=== PATIENT | male | born 1960 | race Caucasian/White ===

== ENCOUNTER → 2017-01-26 | Outpatient (CLI) | payer BC ==
[~2017-01-26] VITALS: Ht 182.9 cm; Wt 86.4 kg
[~2017-01-26] MED LIST: AMLODIPINE5 MG PO; CO Q-1010 M1 PO; DEPO-TESTOS200 MG/M1 IM; DHEA25 M3 PO; FLOMAX0.4 MG PO; LEVOXYL0.125 MG PO; MULTIPLE VITAMI1 CAP PO; MULTIPLE VITAMI1 TA5 PO; NATURE'S BLE1000 MCG PO; OMEGA-3 1000 MG1 CAP PO; OSTEO-BI-FLEX 21 TAB PO; PENTASA250 MG PO; PHARMASSURE ZIN50 MG PO; PREVACID 30MG30 M1 PO; PRINIVIL5 MG PO; PROPRANOLOL10 MG PO; SELENIUM; TIROSINT75 MCG PO; VERAPAMIL; VITAMIN E 400 U4001 PO; VITAMIND3 5000; ZANTAC 300300 MG PO; [UNRECOGNIZED DRUG - CODE] PO; [UNRECOGNIZED DRUG - OTHER]; [UNRECOGNIZED DRUG - OTHER]; [UNRECOGNIZED DRUG - OTHER] PO
[2017-01-26 23:39] VITALS: BP 160/104; PULSE 100; TEMP 97.7
== END ==
LOC: COL.ER 23:34 → EDSTATUS 23:36 → COL.ER 23:39
DX: Z46.6 Encounter for fitting and adjustment of urinary device (principal)
CPT/HCPCS: A4315

== ENCOUNTER 2017-02-22 14:19 | Day surgery (SDC) | payer BC ==
[~2017-02-22] VITALS: Ht 182.9 cm; Wt 89.8 kg
[2017-02-22] VITALS (7 sets, daily range): BP systolic 108–143; BP diastolic 64–90; PULSE 59–86; TEMP 98.4–98.5
[~2017-02-22 14:19] MED LIST changes: -MULTIPLE VITAMI1 CAP PO; -OSTEO-BI-FLEX 21 TAB PO
[2017-02-22] MEDS ORDERED: OSTEO-BI-FLEX 21 TAB PO (16:01)
[2017-02-22] MEDS ORDERED: MULTIPLE VITAMI1 CAP PO (16:01)
[2017-02-23 00:25] VITALS: BP 104/90; PULSE 57; TEMP 98.3
[2017-02-23 05:29] VITALS: BP 124/72; PULSE 58; TEMP 97.7
[2017-02-23 08:57] VITALS: BP 133/68; PULSE 53; TEMP 98.2
== END 2017-02-23 11:40 | disposition home or self-care (01) ==
LOC: SDCO 14:19 → SURG 20:51 → SDCO 02-23 11:40
DX: N42.0 Calculus of prostate (principal); N21.0 Calculus in bladder; N32.0 Bladder-neck obstruction; K21.9 Gastro-esophageal reflux disease without esophagitis; I10 Essential (primary) hypertension; E78.00 Pure hypercholesterolemia, unspecified; E03.9 Hypothyroidism, unspecified; G47.00 Insomnia, unspecified; N41.9 Inflammatory disease of prostate, unspecified; N45.1 Epididymitis; R35.1 Nocturia; R97.20 Elevated prostate specific antigen [PSA]; N39.0 Urinary tract infection, site not specified; N40.1 Benign prostatic hyperplasia with lower urinary tract symptoms; K50.90 Crohn's disease, unspecified, without complications; Z90.49 Acquired absence of other specified parts of digestive tract; Z82.49 Family history of ischemic heart disease and other diseases of the circulatory system; Z80.1 Family history of malignant neoplasm of trachea, bronchus and lung; Z90.79 Acquired absence of other genital organ(s); Z83.3 Family history of diabetes mellitus; Z80.8 Family history of malignant neoplasm of other organs or systems
CPT/HCPCS: OP; C1769; J0690; J1100; J1885; J2405; J2704; J3010; J7120

== ENCOUNTER → 2017-10-09 | Outpatient (CLI) | payer BC ==
[~2017-10-09] MED LIST changes: +MULTIPLE VITAMI1 CAP PO; +OSTEO-BI-FLEX 21 TAB PO
== END ==
LOC: COL.RAD 12:14
DX: E04.1 Nontoxic single thyroid nodule (principal); R93.8 Abnormal findings on diagnostic imaging of other specified body structures; R94.6 Abnormal results of thyroid function studies

== ENCOUNTER 2017-11-04 06:51 | Day surgery (SDC) | payer BC ==
[~2017-11-04] VITALS: Ht 182.9 cm; Wt 87.9 kg
[2017-11-04 07:43] VITALS: BP 151/89; PULSE 70; TEMP 97.5
[2017-11-04] MEDS ORDERED: LEVOXYL0.05 MG PO (07:54)
[2017-11-04] MEDS ORDERED: OMEGA PO (07:58)
[2017-11-04] MEDS ORDERED: PROBIOTIC FORMU1 CAP PO (07:59)
[2017-11-04 12:25] VITALS: BP 128/80; PULSE 57; TEMP 97.3
[2017-11-04 12:40] VITALS: BP 127/85; PULSE 53
[2017-11-04 12:55] VITALS: BP 140/85; PULSE 73
== END 2017-11-04 14:09 | disposition home or self-care (01) ==
LOC: SDCO 06:51
DX: N32.0 Bladder-neck obstruction (principal); N42.0 Calculus of prostate; K21.9 Gastro-esophageal reflux disease without esophagitis; K50.90 Crohn's disease, unspecified, without complications; R53.83 Other fatigue; E78.00 Pure hypercholesterolemia, unspecified; Z88.2 Allergy status to sulfonamides; I10 Essential (primary) hypertension; E03.9 Hypothyroidism, unspecified; G47.00 Insomnia, unspecified
CPT/HCPCS: C1769; J0690; J1100; J2405; J2550; J2704; J3010; J3301; J7120

== ENCOUNTER → 2017-11-11 | Outpatient (CLI) | payer BC ==
[~2017-11-11] MED LIST changes: +LEVOXYL0.05 MG PO; +OMEGA PO; +PROBIOTIC FORMU1 CAP PO
== END ==
LOC: COL.RAD 11-08 09:45
DX: E04.1 Nontoxic single thyroid nodule (principal)
CPT/HCPCS: A9585

== ENCOUNTER → 2017-11-13 | Outpatient (CLI) | payer BC ==
[2017-11-13 15:45] LABS: HEMOGLOBIN 16.1 g/dl (13.5-18.0)
[2017-11-13 15:47] LABS: HEMOGLOBIN 16.4 g/dl (13.5-18.0)
[2017-11-13 16:06] LABS: HEMATOCRIT 46.9 % (42.0-52.0)
[2017-11-13 16:29] LABS: HEMATOCRIT 47.7 % (42.0-52.0)
== END ==
LOC: COL.LAB 09:50
PROVIDERS: Family Medicine
DX: R71.8 Other abnormality of red blood cells (principal)

== ENCOUNTER 2018-06-13 05:59 | Day surgery (SDC) | payer BC ==
[~2018-06-13] VITALS: Ht 182.9 cm; Wt 93.2 kg
[2018-06-13] MEDS ORDERED: PENTASA500 MG PO (06:22)
[2018-06-13] MEDS ORDERED: LEVOXYL0.075 MG PO (06:23)
[2018-06-13] MEDS ORDERED: PRINIVIL5 MG PO (06:23)
[2018-06-13] MEDS ORDERED: ZANTAC 300300 MG PO (06:23)
[2018-06-13 06:38] VITALS: BP 125/84; PULSE 86; TEMP 97.7
[2018-06-13 07:40] VITALS: BP 118/90; PULSE 75; TEMP 96.7
[2018-06-13 07:55] VITALS: BP 123/86; PULSE 64
[2018-06-13 08:10] VITALS: BP 127/86; PULSE 68
== END 2018-06-13 08:30 | disposition home or self-care (01) ==
LOC: SDCO 05:59
DX: Z12.11 Encounter for screening for malignant neoplasm of colon (principal); D12.8 Benign neoplasm of rectum; K52.9 Noninfective gastroenteritis and colitis, unspecified; K50.80 Crohn's disease of both small and large intestine without complications; K21.9 Gastro-esophageal reflux disease without esophagitis; E03.9 Hypothyroidism, unspecified; Z88.1 Allergy status to other antibiotic agents; Z88.2 Allergy status to sulfonamides; Z90.49 Acquired absence of other specified parts of digestive tract; Z86.010 Personal history of colon polyps
CPT/HCPCS: J2250; J3010; J7030

== ENCOUNTER → 2018-08-25 | Outpatient (CLI) | payer BC ==
[~2018-08-25] MED LIST changes: +LEVOXYL0.075 MG PO; +PENTASA500 MG PO
== END ==
LOC: COL.RAD 10:48
DX: E03.9 Hypothyroidism, unspecified (principal)

== ENCOUNTER → 2021-06-15 | Outpatient (CLI) | payer BC | LOC: COL.PUL 07:23 | DX: R06.00 Dyspnea, unspecified (principal) ==